=== PATIENT | male | born 1995 | race African-American/Black ===

== ENCOUNTER 2023-06-27 13:20 | Emergency (ER) | payer SELFPAY | END 2023-06-27 14:18 | disposition home or self-care (01) | LOC: ERS 13:20 | DX: R51.9 Headache, unspecified (principal); F17.210 Nicotine dependence, cigarettes, uncomplicated | CPT/HCPCS: 99283 ==

== ENCOUNTER 2023-07-04 12:40 | Emergency (ER) | payer OTHER, SELFPAY | END 2023-07-04 13:34 | disposition home or self-care (01) | LOC: ERS 12:40 | DX: M79.674 Pain in right toe(s) (principal); F17.210 Nicotine dependence, cigarettes, uncomplicated ==

== ENCOUNTER 2024-02-01 12:00 | Emergency (ER) | payer OTHER, SELFPAY ==
[2024-02-01 13:17] LABS: #Basophils 0.1 thou/uL (0.0-0.2); #Eosinphils 0.5 thou/uL (0.0-0.7); #Monocytes 0.6 thou/uL (0.11-0.59); #Neutrophils 2.6 thou/uL (1.40-6.50); %Basophils 1.2 % (0.0-1.0); %Eosinophils 7.9 % (0.0-10.0); %Lymphocytes 33.9 % (21.0-51.0); %Monocytes 11.2 % (0.0-10.0); %Neutrophils 45.6 % (42.0-75.0); Hematocrit 47.2 % (42.0-52.0); Hemoglobin 15.9 g/dL (14.0-18.0); Mean Corpuscular HGB CONC 33.7 g/dL (32.0-36.0); Mean Corpuscular Hemoglobin 29.6 pg (27.0-31.0); Mean Corpuscular Volume 87.7 fl (78.0-98.0); Mean Platelet Volume 11.8 fL (7.4-10.4); Platelet Count 248 10x3/uL (130-400); RBC Distribution Width 12.8 % (11.5-14.5); Red Blood Cell (RBC) Count 5.38 mill/uL (4.70-6.10); White Blood Cell (WBC) Count 5.7 10x3/uL (4.8-10.8)
== END 2024-02-01 13:44 | disposition home or self-care (01) ==
LOC: ERS 12:00
DX: M79.674 Pain in right toe(s) (principal); F17.210 Nicotine dependence, cigarettes, uncomplicated
CPT/HCPCS: 36415; 84550; 85025